=== PATIENT | male | born 1945 | race Caucasian/White ===

== ENCOUNTER 2019-06-29 11:49 | Emergency (ER) | payer MEDICARE, OTHER ==
[~2019-06-29] VITALS: Ht 178 cm; Wt 93.0 kg
[2019-06-29] MEDS ORDERED: LACTATED RINGERS 1,000 ML IV ONE (12:00)
--- NOTE | 2019-06-29 12:04 | ED Trauma-Multisystem ---
General Chief Complaint: Trauma-Non Activation Stated Complaint: FALL Activation Level: Level 2 Source of Information: Patient Exam Limitations: No Limitations (JOANNA CAREY APRN) History of Present Illness Date Seen by Provider: Jun 29, 2019 Time Seen by Provider: 12:00 Initial Comments To ER via EMS from home with reports of a fall. He was about 10 feet up on a ladder painting when he slipped and fell. He did not lose consciousness and his only complaint is of some pain at the base of his neck. He states that he has arthritis here and it seems to be quite a bit worse now. He has weakness in both arms and both legs but the legs are getting better as compared to immediately after the fall. He still has weakness in both arms and tingling in both arms. He denies any chest abdomen or pelvis pain or head pain. Occurred: Just Prior to Arrival Severity: Moderate Pain/Injury Location: Neck Method of Injury: Fall Modifying Factors: No Movement Loss of Consciousness: No Loss of Consciousness Associated Symptoms (Fall): No Abdominal Pain, No Chest Pain, No Confusion, No Dizziness, No Headache, No Lightheadedness, No Muscle Spasms, No Nausea/Vomiting; Neck Pain (JOANNA CAREY APRN) Allergies and Home Medications Allergies Coded Allergies: No Allergy Information Available (Unverified , 06/29/19) Patient Home Medication List Home Medication List Reviewed: Yes (JOANNA CAREY APRN) Review of Systems Review of Systems Constitutional: see HPI Eyes: No Symptoms Reported Ears: No Symptoms Reported Nose: No Symptoms Reported Mouth: No Symptoms Reported Throat: No Symptoms to Report Respiratory: no symptoms reported Cardiovascular: No Symptoms Reported Genitourinary: no symptoms reported Musculoskeletal: see HPI Skin: no symptoms reported (JOANNA CAREY APRN) Physical Exam Vital Signs Vital Signs - First Documented 06/29/19 11:54 Temp 36.3 Pulse 61 Resp 20 B/P (MAP) 100/86 (91) Pulse Ox 96 O2 Delivery Room Air (GUILLERMINA MENEZES MD) Height, Weight, BMI Height: '" Weight: lbs. oz. kg; BMI Method: General Appearance: No Apparent Distress, WD/WN, Other (alert and oriented GCS 15 hemodynamically stable with a heart rate of 59 sinus oxygen saturation 95% blood pressure 100/86.) Head: No Evidence of Injury; No Active Bleeding, No Penn's Sign, No Contusions Eyes: Bilateral Eye Normal Inspection, Bilateral Eye PERRL, Bilateral Eye EOMI Ears, Nose, Throat: Hearing Grossly Normal, No Evidence of ENT Injury Neck: Other (he is in a rigid cervical collar and reports some pain at the base of his neck over the C7 C6 range.) Cardiovascular: Regular Rate, Rhythm, Normal Peripheral Pulses Respiratory: Chest Non Tender, Lungs Clear, Normal Breath Sounds Gastrointestinal: Normal Bowel Sounds, Non Tender, Soft; No Tenderness Extremity: Other (unable to move legs, feet or toes, does have some gross movement of his arms) Neurologic/Psychiatric: Alert, Oriented x3 Skin: Normal Color, Warm/Dry Upon arrival by EMS and was transferred from there, to our bed on a rigid spine board. While maintaining C-spine precautions he was log rolled to the right side. No lacerations or open wounds on the back. Rectal tone decreased her Dr. Menezes assessment without renzo blood. FAST exam negative (JOANNA CAREY APRN) Rectal: Decreased Tone, Other (no gross blood) Extremity: Other (unable to move legs, feet or toes.) Neurologic/Psychiatric: Other (reports sensation intact to the feet. He is able to sense position of great and fifth toe in the up or down position of both feet) (GUILLERMINA MENEZES MD) Won Coma Score Best Eye Response ([place]): (4) Open Spontaneously Best Verbal Response ([place]): (5) Oriented Best Motor Response ([place]): (6) Obeys Commands [place] Total: 15 (JOANNA CAREY APRN) Progress/Results/Core Measures Results/Orders Lab Results Laboratory Tests Test 06/29/19 12:03 06/29/19 12:06 Range/Units Urine Color YELLOW Urine Clarity CLEAR Urine pH 5.5 5-9 Urine Specific [place] 1.025 H 1.016-1.022 Urine Protein NEGATIVE NEGATIVE Urine Glucose (UA) NEGATIVE NEGATIVE Urine Ketones NEGATIVE NEGATIVE Urine Nitrite NEGATIVE NEGATIVE Urine Bilirubin NEGATIVE NEGATIVE Urine Urobilinogen 0.2 < = 1.0 MG/DL Urine Leukocyte Esterase NEGATIVE NEGATIVE Urine RBC (Auto) NEGATIVE NEGATIVE Urine RBC NONE /HPF Urine WBC NONE /HPF Urine Crystals PRESENT H /LPF Urine Amorphous Sediment FEW DONALD URATES H /LPF Urine Bacteria NEGATIVE /HPF Urine Casts NONE /LPF Urine Mucus NEGATIVE /LPF Urine Culture Indicated NO White Blood Count 4.9 4.3-11.0 10^3/uL Red Blood Count 4.56 4.35-5.85 10^6/uL Hemoglobin 13.7 13.3-17.7 G/DL Hematocrit 42 40-54 % Mean Corpuscular Volume 91 80-99 FL Mean Corpuscular Hemoglobin 30 25-34 PG Mean Corpuscular Hemoglobin Concent 33 32-36 G/DL Red Cell Distribution Width 13.0 10.0-14.5 % Platelet Count 223 130-400 10^3/uL Mean Platelet Volume 10.6 H 7.4-10.4 FL Sodium Level 140 135-145 MMOL/L Potassium Level 4.2 3.6-5.0 MMOL/L Chloride Level 107 98-107 MMOL/L Carbon Dioxide Level 20 L 21-32 MMOL/L Anion Gap 13 5-14 MMOL/L Blood Urea Nitrogen 16 7-18 MG/DL Creatinine 1.32 H 0.60-1.30 MG/DL Estimat Glomerular Filtration Rate 53 BUN/Creatinine Ratio 12 Glucose Level 112 H 70-105 MG/DL Calcium Level 8.8 8.5-10.1 MG/DL Total Bilirubin 0.4 0.1-1.0 MG/DL Direct Bilirubin 0.2 0.0-0.3 MG/DL Indirect Bilirubin 0.2 MG/DL Aspartate Amino Transf (AST/SGOT) 30 5-34 U/L Alanine Aminotransferase (ALT/SGPT) 25 0-55 U/L Alkaline Phosphatase 59 40-136 U/L Total Protein 7.2 6.4-8.2 GM/DL Albumin 4.3 3.2-4.5 GM/DL Serum Alcohol < 10 <10 MG/DL (GUILLERMINA MENEZES MD) Medications Given in ED Current Medications Medications Dose Ordered Sig/Hussein Route Start Time Stop Time Status Last Admin Dose Admin Iohexol 100 ml ONCE ONCE IV 06/29/19 12:15 06/29/19 12:16 DC 06/29/19 12:23 100 ML Ketamine HCl 25 mg ONCE ONCE IV 06/29/19 12:15 06/29/19 12:16 DC 06/29/19 12:49 25 MG Sodium Chloride 100 ml ONCE ONCE IV 06/29/19 12:15 06/29/19 12:16 DC 06/29/19 12:23 80 ML (GUILLERMINA MENEZES MD) Vital Signs/I&O 06/29/19 11:54 Temp 36.3 Pulse 61 Resp 20 B/P (MAP) 100/86 (91) Pulse Ox 96 O2 Delivery Room Air (GUILLERMINA MENEZES MD) Progress Progress Note : Progress Note Patient seen and evaluated with Joanna Carey APRN. Evaluated as trauma although full team activation minimized due to current pandemic. IV by EMS. Second IV established and LR 1 L bolus initiated due to concerns about hypotension secondary to spinal cord injury. He is maintaining appropriate blood pressure currently. FAST exam performed by me after ATLS exam performed. FAST exam negative 4 quadrants. Patient will get trauma labs as well as CT head, neck, chest, abdomen and pelvis and thoracic or lumbar spine series ordered as well. Ketamine 25 mg IV for pain. Monitor patient. (GUILLERMINA MENEZES MD) Diagnostic Imaging Diagonstic Imaging: CT Comments NAME: ISMAEL ESCUDERO [facility] REC#: [id number] PT STATUS: REG ER : 1945 PHYSICIAN: JOANNA CAREY APRN ADMIT DATE: 06/29/19/ER Draft Date of Exam:06/29/19 CT HEAD/CERVICAL SPINE WO PROCEDURE: CT head and CT cervical spine without contrast. TECHNIQUE: Multiple contiguous axial images were obtained through the brain and cervical spine without the use of intravenous contrast. Sagittal and coronal reformations through the cervical spine were then performed. Auto Exposure Controls were utilized during the CT exam to meet ALARA standards for radiation dose reduction. INDICATION: Fall with neck and back pain. No prior studies are available for comparison. CT HEAD: Ventricles and sulci are within normal limits. No sulcal effacement or midline shift is detected. No acute intra-axial or extra-axial hemorrhage is detected. Cisterns are patent. Visualized paranasal sinuses are clear. IMPRESSION: No acute intracranial process is detected. CT cervical spine: Curvature and alignment is normal. There is significant multilevel cervical spondylosis with disc space narrowing in part prominent marginal osteophytes. Prominent osteophytes project posteriorly at C4-C5, C5-C6 and C6/C7 levels producing significant central canal stenosis. There is multilevel facet arthropathy. No fractures are identified. Odontoid appears intact. Prevertebral tissues are normal. IMPRESSION: Severe cervical spondylosis. No acute bony abnormality is detected. Dictated on workstation # [id number] Dict: 06/29/19 1227 Trans: 06/29/19 1239 GERRI [id number] Interpreted by: OLIVIA TURPIN MD Electronically signed by: NAME: ISMAEL [facility] REC#: [id number] PT STATUS: REG ER : 1945 PHYSICIAN: JOANNA CAREY APRN ADMIT DATE: 06/29/19/ER Draft Date of Exam:06/29/19 CT THORACIC/LUMBAR SPINE WO PROCEDURE: CT thoracic and lumbar spine without contrast. TECHNIQUE: Multiple contiguous axial images were obtained through the thoracic and lumbar spine without the use of intravenous contrast. Sagittal and coronal reformations were then performed. All CT scans use one or more of the following dose optimizing techniques: automated exposure control, MA and/or KvP adjustment based on a patient size and exam type, or iterative reconstruction. INDICATION: Fall from ladder. Pain. Weakness. COMPARISON: None FINDINGS: CT thoracic spine: AP static alignment is maintained. There is no significant anteroretrolisthesis. There is no evidence of jumped facets. Vertebral body heights are maintained. There is no evidence of acute fracture. No bony fragments are seen within the spinal canal. Mild multilevel degenerative changes are noted. Pre and paravertebral soft tissue structures are unremarkable. Included portions of the lungs show no additional acute abnormalities. There is mild scattered calcified aortic and coronary atherosclerosis. CT lumbar spine: Static alignment of the lumbar spine is maintained. There is no significant anteroretrolisthesis. There is no evidence of jumped facets. Vertebral body heights are maintained. There is no evidence of acute fracture. No bony fragments are seen within the spinal canal. There are moderate multilevel degenerative changes consistent with intervertebral disc height loss with anterior posterior disc osteophyte complex formations, as well as multilevel facet arthropathy. Pre and paravertebral soft tissue structures are unremarkable. IMPRESSION: 1. No acute fracture or dislocation of the thoracic or lumbar spine. 2. Other nonemergent findings as described above. Dictated on workstation # [id number] Dict: 06/29/19 1233 Trans: 06/29/19 1249 GERRI [id number] Interpreted by: SONAM HORNER MD Electronically signed by: (JOANNA CAREY APRN) Diagonstic Imaging: CT Plain Films/CT/US/NM/MRI: chest, abdomen, pelvis Comments [facility] [place] [place] NAME: ISMAEL ESCUDERO [facility] REC#: [id number] PT STATUS: REG ER : 1945 PHYSICIAN: JOANNA CAREY APRN ADMIT DATE: 06/29/19/ER Draft Date of Exam:06/29/19 CT CHEST/ABDOMEN/PELVIS W PROCEDURE: CT chest, abdomen, and pelvis with contrast. TECHNIQUE: Multiple contiguous axial images were obtained through the chest, abdomen, and pelvis after the administration of intravenous contrast. Auto Exposure Controls were utilized during the CT exam to meet ALARA standards for radiation dose reduction. INDICATION: Fall from ladder. COMPARISON: None FINDINGS: CT chest: Cardiomediastinal structures show normal heart size. There is no large pericardial effusion. Mild scattered calcified aortic and coronary atherosclerosis is identified. No pathologically enlarged or morphologically abnormal adenopathy is seen within the mediastinum, cristobal, nor axilla. Evaluation of lung conway shows no focal consolidation, large effusion, nor pneumothorax. No suspicious pulmonary nodules or masses are identified. Osseous structures show no acute abnormalities. CT ABDOMEN: Moderate amount of air and stool is noted within the distal descending and sigmoid colon. Small bowel loops are nondistended. Normal appendix cannot be adequately identified, but there is no pericecal inflammation. Benign-appearing right renal cyst is noted. Otherwise, kidneys, adrenal glands, spleen, pancreas, and liver have a normal CT appearance. There is no loculated fluid collection, free fluid, nor free air within the abdomen. No abnormal mesenteric or retroperitoneal adenopathy is identified. Fat-containing umbilical hernia is present. Ostia measures 2.6 cm in diameter. Osseous structures show no acute abnormalities. CT PELVIS: Parks catheter is present within urinary bladder. Urinary bladder is decompressed. There is no loculated fluid collection, free fluid, nor free air within the pelvis. No abnormal lymph nodes are identified. Osseous structures show no acute abnormalities. IMPRESSION: 1. No acute abnormalities are seen within the chest, abdomen, nor pelvis. Dictated on workstation # [id number] Dict: 06/29/19 1244 Trans: 06/29/19 1254 SA [id number] Interpreted by: SONAM HORNER MD Electronically signed by: Jaime Imaging: Xray Plain Films/CT/US/NM/MRI: chest Comments [facility] [place] [place] NAME: ISMAEL ESCUDERO [facility] REC#: [id number] PT STATUS: REG ER : 1945 PHYSICIAN: JOANNA CAREY APRN ADMIT DATE: 06/29/19/ER Draft Date of Exam:06/29/19 CHEST 1 VIEW, AP/PA ONLY Indication: Fall 10 to 12 ft. Time of exam 12:42 PM No prior studies are available for comparison. The heart size is normal. The pulmonary vascularity is unremarkable. The lungs are clear. No infiltrate, effusion or pneumothorax is detected. Impression: No acute cardiopulmonary process is detected. Dictated on workstation # [id number] Dict: 06/29/19 1248 Trans: 06/29/19 1250 [facility] [id number] Interpreted by: OLIVIA TURPIN MD Electronically signed by: (GUILLERMINA MENEZES MD) Departure Communication (Admissions) 1510-his overall strength has improved. He can now move his right leg all about, lifting it up off the bed but not against resistance. The left leg he is still unable to lift up off of the bed. He is able to move both arms up off of the bed but unable to hold cell phone to his ear. Spoke with Dr. Lakhani at [facility] in [place], sounds like central cord syndrome and he has accepted the patient. I also spoke with ER physician Dr. Clark who has accepted the patient. 1528-rigid cervical collar for aspen ER collar (JOANNA CAREY APRN) Impression Primary Impression: Cervical spinal cord injury Additional Impressions: Cervical spinal stenosis transient paraplegia Disposition: XFER T-[facility] ( show) Condition: Stable Transfer Transfer Reason: Exceeds level of care Time Spoke to Accepting Phy: 15:11 (JOANNA CAREY APRN) JOANNA CAREY APRN Jun 29, 2019 12:04 GUILLERMINA MENEZES MD Jun 29, 2019 12:33
[2019-06-29 12:07] LABS: BILIRUBIN,URINE NEGATIVE (NEGATIVE); CLARITY,URINE CLEAR; COLOR,URINE YELLOW; GLUCOSE, URINE (UA) NEGATIVE (NEGATIVE); KETONES,URINE NEGATIVE (NEGATIVE); LEUKOCYTE ESTERASE ,URINE NEGATIVE (NEGATIVE); NITRITE,URINE NEGATIVE (NEGATIVE); PH,URINE 5.5 (5-9); PROTEIN,URINE NEGATIVE (NEGATIVE)
[2019-06-29 12:12] LABS: HEMOGLOBIN 13.7 G/DL (13.3-17.7); MEAN PLATELET VOLUME 10.6 FL (7.4-10.4); WHITE BLOOD COUNT 4.9 10^3/uL (4.3-11.0)
[2019-06-29] MEDS ORDERED: HOLD METFORMIN - RECEIVED CONTRAST 20 ML VIAL IV SCH (12:15)
[2019-06-29] MEDS ORDERED: KETAMINE/NaCl 50 MG/5 ML SYRINGE (ED ONLY) IV ONE (12:15)
[2019-06-29] MEDS ORDERED: LACTATED RINGERS 1,000 ML IV SCH (12:15)
[2019-06-29] MEDS ORDERED: IOHEXOL 350 MG/ML 100 ML (OMNIPAQUE 350) VIAL IV ONE (12:15)
[2019-06-29] MEDS ORDERED: NS 100 ML (IVPB) BAG IV ONE (12:15)
[2019-06-29 12:18] LABS: AMORPHOUS SEDIMENT,UR FEW AMOR URATES /LPF; BACTERIA,URINE NEGATIVE /HPF
[2019-06-29 12:32] LABS: ALANINE AMINOTRANSFERASE 25 U/L (0-55); ALBUMIN 4.3 GM/DL (3.2-4.5); ALKALINE PHOSPHATASE 59 U/L (40-136); BILIRUBIN,DIRECT 0.2 MG/DL (0.0-0.3); BILIRUBIN,INDIRECT 0.2 MG/DL; BILIRUBIN,TOTAL 0.4 MG/DL (0.1-1.0); BUN/CREATININE RATIO 12; CALCIUM 8.8 MG/DL (8.5-10.1); CARBON DIOXIDE 20 MMOL/L (21-32); CHLORIDE 107 MMOL/L (98-107); CREATININE SERUM 1.32 MG/DL (0.60-1.30); GFR ESTIMATED 53; GLUCOSE 112 MG/DL (70-105); POTASSIUM 4.2 MMOL/L (3.6-5.0); SODIUM 140 MMOL/L (135-145); TOTAL PROTEIN 7.2 GM/DL (6.4-8.2)
--- NOTE | 2019-06-29 12:40 | Diagnostic Imaging Report ---
PROCEDURE: CT head and CT cervical spine without contrast. TECHNIQUE: Multiple contiguous axial images were obtained through the brain and cervical spine without the use of intravenous contrast. Sagittal and coronal reformations through the cervical spine were then performed. Auto Exposure Controls were utilized during the CT exam to meet ALARA standards for radiation dose reduction. INDICATION: Fall with neck and back pain. No prior studies are available for comparison. CT HEAD: Ventricles and sulci are within normal limits. No sulcal effacement or midline shift is detected. No acute intra-axial or extra-axial hemorrhage is detected. Cisterns are patent. Visualized paranasal sinuses are clear. IMPRESSION: No acute intracranial process is detected. CT cervical spine: Curvature and alignment is normal. There is significant multilevel cervical spondylosis with disc space narrowing in part prominent marginal osteophytes. Prominent osteophytes project posteriorly at C4-C5, C5-C6 and C6/C7 levels producing significant central canal stenosis. There is multilevel facet arthropathy. No fractures are identified. Odontoid appears intact. Prevertebral tissues are normal. IMPRESSION: Severe cervical spondylosis. No acute bony abnormality is detected. Dictated by: Dictated on workstation # [id number]
--- NOTE | 2019-06-29 12:49 | Diagnostic Imaging Report ---
PROCEDURE: CT thoracic and lumbar spine without contrast. TECHNIQUE: Multiple contiguous axial images were obtained through the thoracic and lumbar spine without the use of intravenous contrast. Sagittal and coronal reformations were then performed. All CT scans use one or more of the following dose optimizing techniques: automated exposure control, MA and/or KvP adjustment based on a patient size and exam type, or iterative reconstruction. INDICATION: Fall from ladder. Pain. Weakness. COMPARISON: None FINDINGS: CT thoracic spine: AP static alignment is maintained. There is no significant anteroretrolisthesis. There is no evidence of jumped facets. Vertebral body heights are maintained. There is no evidence of acute fracture. No bony fragments are seen within the spinal canal. Mild multilevel degenerative changes are noted. Pre and paravertebral soft tissue structures are unremarkable. Included portions of the lungs show no additional acute abnormalities. There is mild scattered calcified aortic and coronary atherosclerosis. CT lumbar spine: Static alignment of the lumbar spine is maintained. There is no significant anteroretrolisthesis. There is no evidence of jumped facets. Vertebral body heights are maintained. There is no evidence of acute fracture. No bony fragments are seen within the spinal canal. There are moderate multilevel degenerative changes consistent with intervertebral disc height loss with anterior posterior disc osteophyte complex formations, as well as multilevel facet arthropathy. Pre and paravertebral soft tissue structures are unremarkable. IMPRESSION: 1. No acute fracture or dislocation of the thoracic or lumbar spine. 2. Other nonemergent findings as described above. Dictated by: Dictated on workstation # [id number]
--- NOTE | 2019-06-29 12:50 | Diagnostic Imaging Report ---
Indication: Fall 10 to 12 ft. Time of exam 12:42 PM No prior studies are available for comparison. The heart size is normal. The pulmonary vascularity is unremarkable. The lungs are clear. No infiltrate, effusion or pneumothorax is detected. Impression: No acute cardiopulmonary process is detected. Dictated by: Dictated on workstation # [id number]
--- NOTE | 2019-06-29 12:54 | Diagnostic Imaging Report ---
PROCEDURE: CT chest, abdomen, and pelvis with contrast. TECHNIQUE: Multiple contiguous axial images were obtained through the chest, abdomen, and pelvis after the administration of intravenous contrast. Auto Exposure Controls were utilized during the CT exam to meet ALARA standards for radiation dose reduction. INDICATION: Fall from ladder. COMPARISON: None FINDINGS: CT chest: Cardiomediastinal structures show normal heart size. There is no large pericardial effusion. Mild scattered calcified aortic and coronary atherosclerosis is identified. No pathologically enlarged or morphologically abnormal adenopathy is seen within the mediastinum, cristobal, nor axilla. Evaluation of lung conway shows no focal consolidation, large effusion, nor pneumothorax. No suspicious pulmonary nodules or masses are identified. Osseous structures show no acute abnormalities. CT ABDOMEN: Moderate amount of air and stool is noted within the distal descending and sigmoid colon. Small bowel loops are nondistended. Normal appendix cannot be adequately identified, but there is no pericecal inflammation. Benign-appearing right renal cyst is noted. Otherwise, kidneys, adrenal glands, spleen, pancreas, and liver have a normal CT appearance. There is no loculated fluid collection, free fluid, nor free air within the abdomen. No abnormal mesenteric or retroperitoneal adenopathy is identified. Fat-containing umbilical hernia is present. Ostia measures 2.6 cm in diameter. Osseous structures show no acute abnormalities. CT PELVIS: Parks catheter is present within urinary bladder. Urinary bladder is decompressed. There is no loculated fluid collection, free fluid, nor free air within the pelvis. No abnormal lymph nodes are identified. Osseous structures show no acute abnormalities. IMPRESSION: 1. No acute abnormalities are seen within the chest, abdomen, nor pelvis. Dictated by: Dictated on workstation # [id number]
[2019-06-29] MEDS ORDERED: fentaNYL INJECTION 100 MCG/2 ML AMP IVP ONE ×4 (13:30→15:00)
--- NOTE | 2019-06-29 14:34 | Diagnostic Imaging Report ---
PROCEDURE: MR imaging cervical spine without contrast. TECHNIQUE: Multiplanar, multisequence MR imaging of the cervical spine was performed without contrast. INDICATION: Fall now with neck pain and bilateral arm numbness. No priors for direct comparison. Study correlated with the CT performed earlier the same date. There is a substantial amount of posterior paraspinal intramuscular edema likely owing to soft tissue strain. There is no listhesis. Cervical vertebral body heights are maintained and the vertebral body marrow signal intensity unremarkable. 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 The constellation of findings result in very severe central canal stenosis at multiple levels with there is effacement, indentation and flattening of the cervical spinal cord. At the C4-C5 and C6 levels, there is a suggestion of very slight elevated signal within the cord itself which may be mild cord edema. No renzo cord hemorrhage or laceration. No epidural hematoma. No identifiable ligamentous rupture. No evidence for facet joint uncovering or perching. C3-C4: Facet arthrosis, disc bulge and endplate osteophytes result in a moderate severity of canal stenosis with moderate to severe right and moderate left foraminal narrowing. C4-C5: Ossification posterior longitudinal ligament, disc bulge, endplate osteophytes and posterior element hypertrophy result in very severe central canal stenosis with the midline AP canal diameter narrowed to measure only 5.6 mm with flattening of the cord at this level. There is severe right and moderate to severe left foraminal narrowing. C5-C6: Ossification posterior longitudinal ligament, disc bulge and endplate osteophytes are asymmetric greater right with severe central canal stenosis and flattening and indentation of the right ventral cord with moderate to severe right and [id number] left foraminal narrowing. C6-C7: The constellation of degenerative changes and ligamentous ossification result in severe central canal stenosis with effacement and indentation of the midline ventral cord as well as moderate right and moderate to severe left foraminal narrowing. C7-T1: Disc bulge and endplate osteophytes are asymmetric greater left with mild left foraminal narrowing. IMPRESSION: Severe chronic central canal stenosis with posterior paraspinal musculature edema but no appreciable fracture or facet joint dislocation. No listhesis and no demonstrated ligamentous rupture. Slight elevated T2 signal within the cord at the levels of maximal stenosis which may be chronic or reflect mild posttraumatic cord edema. No evidence for cord hemorrhage, laceration or acute epidural collection. Substantial degrees of multilevel foraminal stenoses listed level by level above Results discussed with the Emergency Room physician. Dictated by: Dictated on workstation # [id number]
--- NOTE | 2019-06-29 14:38 | Diagnostic Imaging Report ---
INDICATION: Fall from height with bilateral arm numbness and back pain. Multiplanar and multisequence imaging of the thoracic spine was performed without contrast. Curvature and alignment of the thoracic spine is normal. Vertebral body heights are maintained. Marrow signal intensity is unremarkable. There is multilevel degenerative disc disease with disc space narrowing and desiccation. The thoracic spinal cord shows normal signal intensity. No cord edema is identified. No epidural hematoma is detected. Paraspinous tissues are unremarkable. There is a probable cyst in the upper pole right kidney. IMPRESSION: Thoracic spondylosis. No acute compression fracture is seen. No thoracic spinal cord edema or epidural hematoma is identified. Dictated by: Dictated on workstation # [id number]
--- NOTE | 2019-06-29 15:13 | NUR ---
SIGNIFICANT OTHER, JOSEFINA,
--- NOTE | 2019-06-29 15:27 | NUR ---
C-COLLAR CHANGED TO SOFT COLLAR BY GABY STEELE.
[2019-06-29] MEDS ORDERED: HYDROmorphone 2 MG/ML VIAL (DILAUDID) IV ONE (16:30)
[2019-06-29 16:33] VITALS: BP 108/59
== END 2019-06-29 16:33 | disposition short-term general hospital (02) ==
LOC: ER 11:52
DX: S14.109A Unspecified injury at unspecified level of cervical spinal cord, initial encounter (principal); M48.02 Spinal stenosis, cervical region; W11.XXXA Fall on and from ladder, initial encounter
CPT/HCPCS: 36415; 51702; 70450; 71045; 71260; 72125; 72128; 72131; 72141; 72146; 74177; 80048; 80076; 80320; 81000; 85027; 93041

== ENCOUNTER → 2020-04-30 | Outpatient (CLI) | payer MEDICARE ==
--- NOTE | 2020-04-30 15:38 | Diagnostic Imaging Report ---
INDICATION: Left-sided abdominal distention. TECHNIQUE: Two supine views of the abdomen at 3:23 p.m. CORRELATION STUDY: None FINDINGS: There is moderate stool retention throughout the colon. No large fecal impaction. No findings to suggest high degree bowel obstruction. There are a few gas-filled loops of small bowel in the mid aspect of the abdomen on the left. Stomach is mildly distended. Vascular stent is noted in the expected location of the left common iliac artery. Rather advanced degenerative change about the lower lumbar spine. IMPRESSION: 1. Moderate stool retention. No large fecal impaction. A few gas-filled loops of small bowel may reflect mild ileus. Dictated by: Dictated on workstation # [id number]
== END ==
LOC: RAD FS 15:19
PROVIDERS: ATTEND Family Medicine
DX: R14.0 Abdominal distension (gaseous) (principal); R15.0 Incomplete defecation
CPT/HCPCS: 74018

== ENCOUNTER → 2020-10-19 | Outpatient (CLI) | payer MEDICARE ==
--- NOTE | 2020-10-19 17:20 | Diagnostic Imaging Report ---
PROCEDURE: MRI lumbar spine. TECHNIQUE: Multiplanar, multisequence MRI of the lumbar spine was performed without contrast. INDICATION: Low back pain. COMPARISON: CT from 06/29/2019. FINDINGS: Last well-formed disc space will be labeled L5-S1 for the purposes of this examination. Alignment appears normal with no spondylolisthesis. There is severe disc height loss at L4-L5 and L5-S1 with moderate disc height loss elsewhere in the lumbar spine. There are Modic type I degenerative endplate changes at L4-L5. Vertebral body heights are preserved. No acute fracture is seen. There is also Modic type I degenerative endplate change at T12-L1. Soft tissues about the lumbar spine demonstrate no acute abnormality. T12-L1: Diffuse disc bulge with facet arthropathy and ligamentous infolding. Moderate spinal canal stenosis. Mild bilateral foraminal narrowing. L1-L2: Diffuse disc bulge with facet arthropathy and ligamentous infolding. Mild spinal canal narrowing. Mild bilateral foraminal narrowing. L2-L3: Diffuse disc bulge with facet arthropathy and ligamentous infolding. Narrowing of the lateral recesses with mild spinal canal stenosis. Moderate bilateral foraminal stenosis. L3-L4: Diffuse disc bulge with facet arthropathy and ligamentous infolding. Effacement of the lateral recesses. Mild spinal canal narrowing. Severe bilateral foraminal stenosis. L4-L5: Diffuse disc bulge with marked facet arthropathy and ligamentous infolding. Mild spinal canal narrowing with effacement of the lateral recesses. Severe bilateral foraminal stenosis. L5-S1: Diffuse disc bulge and facet arthropathy. No spinal canal stenosis. Moderate right and severe left foraminal stenosis. IMPRESSION: 1. Advanced degenerative changes in the lumbar spine. No acute fracture is seen. 2. Spinal canal stenosis, most severe at T12-L1 and L2-L3. 3. Multilevel severe foraminal stenosis. Dictated by: Dictated on workstation # [id number]
== END ==
LOC: RAD 15:30
PROVIDERS: ATTEND Family Medicine
DX: M47.26 Other spondylosis with radiculopathy, lumbar region (principal); M51.16 Intervertebral disc disorders with radiculopathy, lumbar region; M48.05 Spinal stenosis, thoracolumbar region; M48.061 Spinal stenosis, lumbar region without neurogenic claudication
CPT/HCPCS: 72148

== ENCOUNTER → 2021-04-23 | Outpatient (CLI) | payer MEDICARE ==
--- NOTE | 2021-04-23 16:14 | Diagnostic Imaging Report ---
INDICATION: Neck pain with prior history of cervical spine fusion. TIME OF EXAM: 02:48 p.m. FINDINGS: A neutral lateral view of the cervical spine demonstrates minimal anterolisthesis of C3 on C4. Postop changes of posterior instrumented fusion are noted with vertical stabilization rods and posterior element screws extending from C4 through T1. Hardware appears to be intact. No definite motion during flexion or extension maneuvers is seen. There is multilevel degenerative disc disease with disc space narrowing and marginal spurring. Prevertebral tissues are normal. No acute bony abnormality is seen. IMPRESSION: Posterior instrumented fusion from C4 through T1. No hardware fracture or loosening is seen. There is minimal anterolisthesis of C3 on C4. No motion during flexion or extension maneuvers is identified. Dictated by: Dictated on workstation # [id number]
== END ==
LOC: RAD FS 14:33
PROVIDERS: ATTEND Nurse Practitioner
DX: M48.05 Spinal stenosis, thoracolumbar region (principal); Z98.1 Arthrodesis status
CPT/HCPCS: 72050